=== PATIENT | male | born 1945 | race African-American/Black ===

== ENCOUNTER 2017-12-12 06:20 | Inpatient (IN) | payer MEDICARE, BC, OTHER ==
[2017-12-11 17:43] VITALS: BMI 22.5
[2017-12-12] MEDS ORDERED: Heparin 5,000 UNITS/ML VIAL ONE (06:37)
[2017-12-12] MEDS ORDERED: Protamine Sulfate 50 MG/5 ML VIAL ONE (06:37)
[2017-12-12] MEDS ORDERED: Heparin 1000 UNIT/NS 500ML(OR) 500 ML ONE ×2 (06:39→08:04)
[2017-12-12 07:07] LABS: #Eosinphils 0.2 thou/uL (0.0-0.7); #Lymphocytes 2.2 thou/uL (1.20-3.40); #Monocytes 0.4 thou/uL (0.11-0.59); #Neutrophils 2.1 thou/uL (1.40-6.50); %Eosinophils 3.6 % (0.0-10.0); %Lymphocytes 44.8 % (21.0-51.0); %Monocytes 7.6 % (0.0-10.0); %Neutrophils 43.1 % (42.0-75.0); Hemoglobin 15.3 g/dL (14.0-18.0); Mean Corpuscular HGB CONC 33.7 g/dL (32.0-36.0); Mean Corpuscular Volume 92.1 fL (78.0-98.0); Mean Platelet Volume 7.6 fL (7.4-10.4); Platelet Count 253 thou/uL (130-400); RBC Distribution Width 13.3 % (11.5-14.5); Red Blood Cell (RBC) Count 4.94 mill/uL (4.70-6.10)
[2017-12-12 07:15] LABS: Anion Gap 14 mmol/L (10-20); BUN (Urea Nitrogen) 18 mg/dL (8.4-25.7); Calc. Creatinine Clearance 84 mL/min (70-130); Calcium 9.5 mg/dL (7.8-10.44); Carbon Dioxide 23 mmol/L (23-31); Chloride 104 mmol/L (98-107); Estimated GFR-MDRD Greater than 90; Glucose 102 mg/dL (83-110); Potassium 4.1 mmol/L (3.5-5.1); Sodium 137 mmol/L (136-145)
[2017-12-12] MEDS ORDERED: Fentanyl 100 MCG/2 ML VIAL ONE (07:23)
[2017-12-12] MEDS ORDERED: Phenylephrine HCL 10 MG/ML VIAL ONE (07:24)
--- NOTE | 2017-12-12 10:30 | OP ---
DATE OF PROCEDURE: 12/12/2017 PREOPERATIVE DIAGNOSIS: Possible stenosis origin right fem-pop graft. 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 PROCEDURE: Iliofemoral angiography and right lower extremity runoff. SURGEON: Dr. Tayo Talavera CONTRAST: 32 mL. FLUOROSCOPY: 3.7 minutes. FINDINGS: The patient's fem-pop bypass graft was widely patent except at the origin it appeared to h ave a stenosis, although it did not appear critical and did appear to be about 70%. The right common femoral endarterectomy and profunda endarterectomy sites were large and widely patent. Runoff dista lly was via the posterior tibial artery with some retrograde flow up to the tibioperoneal trunk and i nto the popliteal, anterior tibial and peroneal with the anterior tibial being significantly diseased proximally and did not appear to go below the mid calf. Peroneal appeared to be patent down toward the ankle. After prepping and draping the left groin the area was imaged with ultrasound and after lidocaine inf iltration femoral artery was punctured. A significant amount of scar tissue, but after the wire was placed the sheath went in without difficulty. Retrograde angiography was then obtained of the left c ommon iliac, external iliac following which a pigtail catheter was placed and aorta and iliofemoral a ngiography performed showing no significant stenosis, but calcified vessels. Right lower extremity r unoff was then obtained after passing the Contra catheter over a Glidewire into the external iliac ar adin. Following this, the Contra catheter was removed over a wire. The patient tolerated the proced ure well. The plan is to go to the operating room for a revision of the proximal stenosis in the fem -pop graft.
[2017-12-12] MEDS ORDERED: Bupivacaine HCl 0.5%/Epinephrine 1:200,000/PF 30 ml Vial ONE (10:33)
[2017-12-12] MEDS ORDERED: Promethazine HCl 25 MG/ML VIAL SLOW IVP PRN (11:20)
[2017-12-12] MEDS ORDERED: HYDROmorphone 2 MG/ML VIAL SLOW IVP PRN (11:20)
[2017-12-12] MEDS ORDERED: Ondansetron HCl/PF 4 MG/2 ML Vial IVP PRN ×2 (11:20→14:01)
[2017-12-12] MEDS ORDERED: Ketorolac Tromethamine 30 MG/ML VIAL IVP PRN (11:20)
[2017-12-12] MEDS ORDERED: Meperidine HCl/PF 25 MG/ML VIAL SLOW IVP PRN (11:20)
[2017-12-12] MEDS ORDERED: Promethazine HCl 25 MG/ML VIAL IM PRN (11:20)
--- NOTE | 2017-12-12 11:43 | OP ---
PREOPERATIVE DIAGNOSIS: Stenosis origin right fem-pop graft. POSTOPERATIVE DIAGNOSIS: Stenosis origin right fem-pop graft. PROCEDURE: Vein patch angioplasty of the fem-pop bypass graft. SURGEON: Tayo Talavera M.D. ANESTHESIA: General. ESTIMATED BLOOD LOSS: 200 mL PROCEDURE IN DETAIL: After adequate anesthesia had been obtained, ultrasound was used to guide the i ncision in the groin as well as a site for harvesting a segment of vein. Following prepping and drap ing of the distal femoral incision was incised and carried somewhat distally. There was rather sever e scarring in the groin. Ultimately, the vein graft was found and then dissection carried proximally to the camejo of the vein graft, which had been used for the profunda endarterectomy patch. After dis secting out the profunda and the vein, the attention was turned to harvesting a segment of saphenous vein from just below the left knee, which was performed. This wound was then closed in layers. The patient was heparinized. Clamps were applied and arteriotomy performed from the vein graft about 1 c m distal to the takeoff of the vein from its camejo extending onto the camejo. There was an area of whit e fibrinous debris that was the cause of the stenosis and this was removed. The vein was then used t o patch the venotomy with a running 6-0 Prolene suture. Following backflushing and forward flushing, flow was restored. ACT levels were monitored following heparinization. Following this, heparin was used to reverse the protamine and hemostasis obtained and the wound was then closed in layers. The patient is to be taken to the recovery room in guarded condition.
[2017-12-12] MEDS ORDERED: Lidocaine 1% PF 5 ML VIAL ONE (11:58)
[2017-12-12] MEDS ORDERED: PROPOFOL 200 MG/20 ML VIAL ONE (11:58)
[2017-12-12] MEDS ORDERED: Heparin 10,000 UNITS/ 10 ML VIAL ONE (11:58)
[2017-12-12] MEDS ORDERED: Dexamethasone 20 MG/5 ML VIAL ONE (11:58)
[2017-12-12] MEDS ORDERED: PHENYLEPHRINE-NS 100 MCG/ML 10 ML SYRINGE ONE (11:58)
[2017-12-12] MEDS ORDERED: Ondansetron HCl/PF 4 MG/2 ML Vial ONE (11:58)
[2017-12-12] MEDS ORDERED: Glycopyrrolate 0.2 MG/ML 5 ML SYRINGE ONE (11:58)
[2017-12-12] MEDS ORDERED: Iopamidol 370 76% 50 ML VIAL FS ONE (13:21)
[2017-12-12] MEDS ORDERED: HYDROcodone/Acetaminophen 5/325 mg Tablet PO PRN ×2 (14:01)
[2017-12-12] MEDS ORDERED: Acetaminophen 325 MG TAB PO PRN (14:01)
[2017-12-12] MEDS ORDERED: hydrALAZINE 20 MG/ML VIAL SLOW IVP PRN (14:01)
[2017-12-12] MEDS ORDERED: Fentanyl 100 MCG/2 ML VIAL SLOW IVP PRN ×2 (14:01)
[2017-12-12] MEDS ORDERED: Sodium Chloride 0.9% 1,000 ML IV SCH (14:01)
[2017-12-12] MEDS: CEFAZOLIN/Water 2 GM/20 ML SYRINGE SLOW IVP SCH ×2 (14:58→21:39)
[2017-12-12] MEDS: Carvedilol 6.25 MG TAB PO SCH (17:07)
[2017-12-12] MEDS ORDERED: Atorvastatin Calcium 10 MG TAB PO SCH (21:00)
[2017-12-13] MEDS: CEFAZOLIN/Water 2 GM/20 ML SYRINGE SLOW IVP SCH (05:30)
[2017-12-13] MEDS ORDERED: Furosemide 40 MG TAB PO SCH (07:30)
[2017-12-13] MEDS: Carvedilol 6.25 MG TAB PO SCH (08:33)
[2017-12-13 08:51] VITALS: BP 131/74; TEMP 97.5
[2017-12-13] MEDS ORDERED: Clopidogrel Bisulfate 75 MG TAB PO SCH (09:00)
[2017-12-13] MEDS ORDERED: Lisinopril 10 MG TAB PO SCH (09:00)
--- NOTE | 2017-12-13 10:56 | DIS ---
HOSPITAL COURSE: The patient was admitted on 12/12/2017 where he underwent revision of a stenosis in the more proximal aspect of the saphenous vein graft as it took off from its camejo on the profunda fe moral artery. The patient had rather dense scar tissue in this region. He had a short segment of sa phenous vein harvested from the left upper calf to use as a vein patch. Postoperatively, he had no i ssues, no pain, good pulse in his graft in his angiographic site which had been accessed prior to thelma lio to assess the location of the stenosis was not an issue either. He will be discharged home on h is admitting medicines to follow up with me in 2-3 weeks.
--- NOTE | 2017-12-13 16:55 | EKG ---
Test Reason : PREOP Blood Pressure : / mmHG Vent. Rate : 063 BPM Atrial Rate : 063 BPM P-R Int : 144 ms QRS Dur : 134 ms QT Int : 496 ms P-R-T Axes : 071 039 029 degrees QTc Int : 507 ms Electronic ventricular pacemaker No previous ECGs available Confirmed by JACKY HAWK ([id number]) on 12/13/2017 4:55:27 PM Referred By: JOCELYNE Confirmed By:JACKY HAWK
== END 2017-12-13 10:45 | disposition home or self-care (01) | DRG 253 ==
LOC: SURG A 06:20 → SURG B 12:53
PROVIDERS: ADMIT Thoracic Surgery (Cardiothoracic Vascular Surgery); ATTEND Thoracic Surgery (Cardiothoracic Vascular Surgery)
PROC: 04CK0ZZ Extirpation of Matter from Right Femoral Artery, Open Approach (ICD-10-PCS; principal; 2017-12-12)
PROC: 06BQ0ZZ Excision of Left Saphenous Vein, Open Approach (ICD-10-PCS; 2017-12-12)
PROC: 04UK07Z Supplement Right Femoral Artery with Autologous Tissue Substitute, Open Approach (ICD-10-PCS; 2017-12-12)
PROC: B41F1ZZ Fluoroscopy of Right Lower Extremity Arteries using Low Osmolar Contrast (ICD-10-PCS; 2017-12-12)
DX: T82.858A Stenosis of other vascular prosthetic devices, implants and grafts, initial encounter (principal); I50.42 Chronic combined systolic (congestive) and diastolic (congestive) heart failure; I70.221 Atherosclerosis of native arteries of extremities with rest pain, right leg; I11.0 Hypertensive heart disease with heart failure; E78.2 Mixed hyperlipidemia; Z95.810 Presence of automatic (implantable) cardiac defibrillator; Z89.421 Acquired absence of other right toe(s); E78.5 Hyperlipidemia, unspecified
CPT/HCPCS: 36246; 36415; 75710; 76942; 80048; 85025; 86850; 86900; 86901; 93005; 93010; C1769; J0670; J1644; J2370; J2720; J3010